=== PATIENT | female | born 1980 | race Hispanic/Latino ===

== ENCOUNTER 2022-05-28 05:55 | Emergency (ER) | payer OTHER ==
[~2022-05-28] VITALS: Ht 160 cm; Wt 108.9 kg
== END 2022-05-28 06:35 | disposition home or self-care (01) ==
LOC: ER 06:06
DX: M79.605 Pain in left leg (principal); N18.9 Chronic kidney disease, unspecified; K21.9 Gastro-esophageal reflux disease without esophagitis; M54.9 Dorsalgia, unspecified; G89.29 Other chronic pain; F17.210 Nicotine dependence, cigarettes, uncomplicated
CPT/HCPCS: 99282

== ENCOUNTER 2024-06-07 19:45 | Emergency (ER) | payer OTHER ==
[~2024-06-07] VITALS: Ht 160 cm; Wt 111.1 kg
[2024-06-07 19:45] VITALS: PULSE 74; RESP 18; TEMP 98.1
[~2024-06-07 19:45] MED LIST: CYCLOBENZAPRINE5 MG PO; KETOROLAC TROME10 MG PO; ONDANSETRON ODT4 MG PO
[2024-06-07] MEDS ORDERED: ZANAFLEX4 MG PO (20:19)
[2024-06-07] MEDS ORDERED: KETOROLAC TROME10 MG PO (20:19)
[2024-06-07 21:25] VITALS: BP 119/82; PULSE 71; RESP 18; TEMP 98.6; O2SAT 99
== END 2024-06-07 21:26 | disposition home or self-care (01) ==
LOC: FSED 19:48
DX: M25.512 Pain in left shoulder (principal); M75.02 Adhesive capsulitis of left shoulder; N18.9 Chronic kidney disease, unspecified; K21.9 Gastro-esophageal reflux disease without esophagitis; M54.9 Dorsalgia, unspecified; G89.29 Other chronic pain; Z85.53 Personal history of malignant neoplasm of renal pelvis
CPT/HCPCS: 99283

== ENCOUNTER 2024-11-03 19:46 | Emergency (ER) | payer OTHER ==
[~2024-11-03] VITALS: Ht 160 cm; Wt 113.0 kg
[~2024-11-03 19:46] MED LIST changes: +ZANAFLEX4 MG PO
[2024-11-03 21:56] VITALS: PULSE 73; RESP 20; TEMP 98.5
[2024-11-03] MEDS: ONDANSETRON HCL 4 MG ORAL DISINTEGRATING TAB PO ONE (22:07)
[2024-11-03] MEDS ORDERED: CEFDINIR300 MG PO (22:23)
[2024-11-03 22:30] VITALS: BP 123/60; PULSE 73; RESP 20; TEMP 98.5; O2SAT 99
== END 2024-11-03 22:33 | disposition home or self-care (01) ==
LOC: FSED 19:55
DX: R30.0 Dysuria (principal); N39.0 Urinary tract infection, site not specified; D72.829 Elevated white blood cell count, unspecified; R73.9 Hyperglycemia, unspecified; R35.0 Frequency of micturition; K21.9 Gastro-esophageal reflux disease without esophagitis; M81.0 Age-related osteoporosis without current pathological fracture; M54.9 Dorsalgia, unspecified; G89.29 Other chronic pain; Z85.528 Personal history of other malignant neoplasm of kidney
CPT/HCPCS: 80048; 80076; 81003; 81025; 85025; 99284; J0696; Q0162